=== PATIENT | female | born 1960 | race Two or more races ===

== ENCOUNTER 2023-03-02 11:40 | Emergency (ER) | payer OTHER ==
[~2023-03-02] VITALS: Ht 162.6 cm; Wt 84.2 kg
[2023-03-02] MEDS ORDERED: PROCHLORPERAZINE EDISYLATE 5 MG/ML 2ML VIAL IM ONE (12:15)
[2023-03-02 12:50] LABS: Basophils # (auto) 0.1 10 ^3/uL (0-0.2); Basophils % (auto) 0.5 % (0.0-2.0); Eosinophils # (auto) 0.1 10 ^3/uL (0-0.8); Eosinophils % (auto) 1.2 % (0.0-7.0); Hematocrit 45.2 % (36.0-46.0); Hemoglobin 15.3 g/dL (12.2-16.2); Lymphocytes # (auto) 2.2 10 ^3/uL (0.4-5.4); Lymphocytes % (auto) 19.9 % (10.0-50.0); Mean Corpuscular Hemoglobin 29.3 pg (28.0-32.0); Mean Corpuscular Hgb Conc. 33.8 g/dL (32.0-36.0); Mean Corpuscular Volume 86.7 fL (80.0-100.0); Monocytes # (auto) 0.8 10 ^3/uL (0-1.3); Monocytes % (auto) 7.1 % (0.0-12.0); Neutrophils # (auto) 7.7 10 ^3/uL (1.6-8.6); Neutrophils % (auto) 71.3 % (37.0-80.0); Red Blood Cells 5.22 10^6/uL (4.0-5.20); Red Cell Distribution Width 13.4 % (11.8-14.3); White Blood Cell 10.8 10^3/uL (4.4-10.8)
[2023-03-02 13:47] LABS: INR 0.98 (0.9-1.15); Partial Thromboplastin Time 25.3 SEC (24.5-34.5)
[2023-03-02 14:08] LABS: Albumin 3.7 g/dL (3.4-5.0); Calcium 9.3 mg/dL (8.5-10.1); Magnesium 2.4 mg/dL (1.6-2.6); Potassium 3.9 mmol/L (3.5-5.1)
[2023-03-02 14:11] LABS: BUN/Creatinine Ratio 16.4 (10.0-20.0); Bilirubin, Total 0.9 mg/dL (0.2-1.0); Total Protein 7.6 g/dL (6.4-8.2)
[2023-03-02] MEDS ORDERED: SODIUM CHLORIDE 0.9% 1,000 ML IV ONE (14:30)
[2023-03-02] MEDS ORDERED: IOHEXOL 350 MG/ML 100ML IJ ONE (14:33)
[2023-03-02 15:53] VITALS: PULSE 102; RESP 20; O2SAT 96
[2023-03-02] MEDS ORDERED: LISINOPRIL 10 MG TAB PO ONE (16:00)
[2023-03-02] MEDS ORDERED: MECL1TAB42 PO (16:33)
[2023-03-02] MEDS ORDERED: LISI10TA34 PO (16:42)
[2023-03-02] MEDS ORDERED: LORazepam 2MG/ML-1ML VIAL IV ONE (17:15)
[2023-03-02] MEDS ORDERED: PROCHLORPERAZINE EDISYLATE 5 MG/ML 2ML VIAL IV ONE (17:15)
[2023-03-02 17:53] VITALS: BP 142/72; PULSE 102; RESP 20; TEMP 97.9; O2SAT 97
== END 2023-03-02 18:24 | disposition home or self-care (01) ==
LOC: ER 11:40
DX: R55 Syncope and collapse (principal); I10 Essential (primary) hypertension; E11.9 Type 2 diabetes mellitus without complications; F17.210 Nicotine dependence, cigarettes, uncomplicated; Z88.5 Allergy status to narcotic agent
CPT/HCPCS: 36415; 70450; 70496; 71045; 80053; 83735; 83880; 84484; 85025; 85610; 85730; 93005; 96360; 96372; 99285; J0780; J2060; J7030; Q9967

== ENCOUNTER 2024-12-26 14:00 | Emergency (ER) | payer MEDICAID, OTHER ==
[~2024-12-26 14:00] MED LIST: LISI10TA34 PO; MECL1TAB42 PO
== END 2024-12-26 15:32 | disposition left against medical advice (07) ==
LOC: ER 14:09
DX: I10 Essential (primary) hypertension (principal); Z53.21 Procedure and treatment not carried out due to patient leaving prior to being seen by health care provider

== ENCOUNTER 2024-12-28 05:59 | Emergency (ER) | payer MEDICAID ==
[~2024-12-28] VITALS: Ht 162.6 cm; Wt 86.1 kg
[2024-12-28] MEDS: cloNIDine HCL 0.1 MG TAB PO ONE (06:35)
[2024-12-28] MEDS: cloNIDine HCL 0.1 MG TAB ONE (06:35)
--- NOTE | 2024-12-28 06:52 | ED.PDOC ---
HPI Comments 64 y/o F, with PMHx of HTN presents to the ED for CC of high blood pressure. Patient states, she has been experiencing a hypertensive crisis with symptoms of fatigue, nausea, and vomiting onset, [id number]. Patient reports, that she currently does not take any medication to control her blood pressure. Upon arrival to the ED, patient's blood pressure read at 190/106mmHg. Patient denies active chest pain, palpitations, shortness of breath, or headache. No other symptoms or modifying factors present at this time. Chief Complaint: High Blood Pressure Time Seen by MD: 06:15 Reviewed Notes: Nurses Notes, Medications, Allergies Allergies: Coded Allergies: Codeine (Verified Allergy, Unknown, 03/02/23) Home Meds Active Scripts Lisinopril (Lisinopril) 10 Mg Tab, 10 MG PO DAILY, #30 TAB Prov:ROBERT SCHULTE MD 03/02/23 Meclizine HCl (Meclizine 25) 25 Mg Tab, 25 MG PO Q6HP PRN, #20 TAB Prov:ROBERT SCHULTE MD 03/02/23 Information Source: Patient Mode of Arrival: Ambulatory Severity: Moderate Timing: Weeks Duration: Since onset Prehospital treatment: None Onset: At Rest Cardiac Risk Factors: Smoker, HTN, None PE Risk Factors: None History of: None Modifying Factors: Nothing Associated Signs and Symptoms: N/V Past Medical History PAST MEDICAL HISTORY: HTN Surgical History: Cholecystectomy, Tubal Ligation 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 SERVICER Hx Family History Family History: Unknown Social History Smoker: Cigarettes Alcohol: Denies ETOH Use Drugs: Denies Drug Use Lives In: Home Constitutional: reports: fatigue; denies: chills, diaphoresis, fever, malaise, sweats, weakness, others EENTM: denies: blurred vision, double vision, ear bleeding, ear discharge, ear drainage, ear pain, ear ringing, eye pain, eye redness, hearing loss, mouth pain, mouth swelling, nasal discharge, nose bleeding, nose congestion, nose pain, photophobia, tearing, throat pain, throat swelling, voice changes, others Respiratory: denies: cough, hemoptysis, orthopnea, SOB at rest, shortness of breath, SOB with excertion, stridor, wheezing, others Cardiovascular: denies: chest pain, dizzy spells, diaphoresis, Dyspnea on exertion, edema, irregular heart beat, left arm pain, lightheadedness, palpitations, PND, syncope, others Gastrointestinal: reports: nausea, vomiting; denies: abdomen distended, abdominal pain, blood streaked bowels, constipated, diarrhea, dysphagia, difficulty swallowing, hematemesis, melena, poor appetite, poor fluid intake, rectal bleeding, rectal pain, others Genitourinary: denies: abnormal vagina bleeding, burning, dyspareunia, dysuria, flank pain, frequency, hematuria, incontinence, pain, , vagina discharge, urgency, others Neurological: denies: dizziness, fainting, headache, left sided numbness, left sided weakness, numbness, paresthesia, pre-existing deficit, right sided numbness, right sided weakness, seizure, speech problems, tingling, tremors, weakness, others Musculoskeletal: denies: back pain, gout, joint pain, joint swelling, muscle pain, muscle stiffness, neck pain, others Integumetry: denies: bruises, change in color, change in hair/nails, dryness, laceration, lesions, lumps, rash, wounds, others Allergic/Immunocompromised: denies: Difficulty Healing, Frequent Infections, Hives, Itching, others Hematologic/Lymphatic: denies: anemia, blood clots, easy bleeding, easy bruising, swollen glands, others Endocrine: denies: excessive hunger, excessive sweating, excessive thirst, excessive urination, flushing, intolerance to cold, intolerance to heat, unexplained weight gain, unexplained weight loss, others Psychiatric: denies: anxiety, bipolar disorder, depression, hopeless, panic disorder, schizophrenia, sleepless, suicidal, others All Other Systems: Reviewed and Negative Physical Exam General Appearance: Moderate Distress HEENT: Normal ENT Inspection, Pharynx Normal, TMs Normal Neck: Full Range of Motion, Non-Tender, Normal, Normal Inspection Respiratory: Chest Non-Tender, Lungs Clear, No Accessory Muscle Use, No Respiratory Distress, Normal Breath Sounds Cardiovascular: No Edema, No JVD, No Murmur, No Gallop, Normal Peripheral Pulses, Regular Rate/Rhythm Breast Exam: Deferred Gastrointestinal: No Organomegaly, Non Tender, No Pulsatile Mass, Normal Bowel Sounds, Soft Genitalia: Deferred Pelvic: Deferred Rectal: Deferred Extremities: No calf tenderness, Normal capillary refill, Normal inspection, Normal range of motion, Non-tender, No pedal edema Musculoskeletal : Apperance: Normal Neurologic: Alert, race relations adviser II-XII nml as Tested, No Motor Deficits, Normal Affect, Normal Mood, No Sensory Deficits Cerebellar Function: Normal Reflexes: Normal Skin: Dry, Normal Color, Warm Peripheral Pulses: 3+ Radial (R), 3+ Radial (L) Lymphatic: No Adenopathy Was a procedure done? Was a procedure done?: No CP Differential Dx Differential Diagnosis: A-fib, A-Flutter, Angina, Anxiety / Panic Attack, Atrial Dysrhythmia, Electrolyte Disorder Differential Diagnosis: HTN Essential, HTN Accelerated X-Ray, Labs, Meds, VS Vital Signs Date Time Temp Pulse Resp B/P (MAP) Pulse Ox O2 Delivery O2 Flow Rate FiO2 12/28/24 06:35 190/106 12/28/24 06:19 97.2 84 18 190/106 (134) 96 97.2 Lab Test 12/28/24 06:40 12/28/24 06:25 Range/Units White Blood Count 10.1 4.4-10.8 10^3/uL Red Blood Count 5.68 H 4.0-5.20 10^6/uL Hemoglobin 16.6 H 12.2-16.2 g/dL Hematocrit 48.5 H 36.0-46.0 % Mean Corpuscular Volume 85.2 80.0-100.0 fL Mean Corpuscular Hemoglobin 29.2 28.0-32.0 pg Mean Corpuscular Hemoglobin Concent 34.3 32.0-36.0 g/dL Red Cell Distribution Width 13.6 11.8-14.3 % Platelet Count 312 140-450 10^3/uL Mean Platelet Volume 8.4 6.9-10.8 fL Neutrophils (%) (Auto) 55.7 37.0-80.0 % Lymphocytes (%) (Auto) 32.3 10.0-50.0 % Monocytes (%) (Auto) 6.8 0.0-12.0 % Eosinophils (%) (Auto) 4.5 0.0-7.0 % Basophils (%) (Auto) 0.7 0.0-2.0 % Neutrophils # (Auto) 5.6 1.6-8.6 10 ^3/uL Lymphocytes # (Auto) 3.2 0.4-5.4 10 ^3/uL Monocytes # (Auto) 0.7 0-1.3 10 ^3/uL Eosinophils # (Auto) 0.4 0-0.8 10 ^3/uL Basophils # (Auto) 0.1 0-0.2 10 ^3/uL Nucleated Red Blood Cells 0.1 % Sodium Level 140 136-145 mmol/L Potassium Level 4.7 3.5-5.1 mmol/L Chloride Level 105 98-107 mmol/L Carbon Dioxide Level 25 20-31 mmol/L Anion Gap 10 5-15 Blood Urea Nitrogen 32 H 9-23 mg/dL Creatinine 1.92 H 0.550-1.02 mg/dL Glomerular Filtration Rate Calc 29 >90 mL/min BUN/Creatinine Ratio 16.7 10.0-20.0 Serum Glucose 172 H 74-106 mg/dL Calcium Level 9.7 8.7-10.4 mg/dL POC Glucose 163 H 70-106 mg/dl Current Medications Medications (Trade) Dose Ordered Sig/Fozia Route Start Time Stop Time Status Last Admin Clonidine HCl (Catapres Tablet) 0.2 mg ONCE ONCE PO 12/28/24 06:45 12/28/24 06:46 DC 12/28/24 06:35 Patient alert. Generalized symptoms. Blood sugar slightly elevated. Vitals stable. Blood pressure elevated. Was given clonidine. She does not take care of herself. Has not seen a provider in many months. Ambulating without difficulty. Saturation pristine on room air. Was given prescription of lisinopril. Explained to the patient. Was told to follow up with her primary care physician. Was told to come back if there any problem. Time of 1ST Reevaluation: 06:45 Reevaluation 1ST: Unchanged Patient Education/Counseling: Diagnosis, Treatment Family Education/Counseling: No Family Present Departure 1 Departure Time of Disposition: 07:00 Impression: Primary Impression: Hypertensive emergency Additional Impression: Hyperglycemia Disposition: 01 HOME / SELF CARE / HOMELESS Condition: Good e-Prescriptions Lisinopril (Lisinopril) 2.5 Mg Tab 1 TAB PO DAILY for 10 Days, #10 TAB 5 Refills Prov: GUEVARA AGARWAL MD 12/28/24 Discharged With: Self Critical Care Note Critical Care Time?: No Stability Stability form required: No Heart Score Heart Score: Heart Score Response (Comments) Value History N/A 0 EKG N/A 0 Age N/A 0 Risk Factors N/A 0 Troponin N/A 0 Total 0 I personally scribed for GUEVARA AGARWAL MD ([email or web address]) on 12/28/24 at 06:52. Electronically submitted by Rita Saldivar ([email or web address]). GUEVARA AGARWAL MD December 28, 2024 06:52
[2024-12-28 06:59] LABS: Chloride 105 mmol/L (98-107); Potassium 4.7 mmol/L (3.5-5.1); Sodium 140 mmol/L (136-145)
[2024-12-28 07:00] LABS: Anion Gap 10 (5-15); Calcium 9.7 mg/dL (8.7-10.4); Carbon Dioxide 25 mmol/L (20-31)
[2024-12-28 07:04] LABS: Basophils # (auto) 0.1 10 ^3/uL (0-0.2); Basophils % (auto) 0.7 % (0.0-2.0); Eosinophils # (auto) 0.4 10 ^3/uL (0-0.8); Eosinophils % (auto) 4.5 % (0.0-7.0); Hematocrit 48.5 % (36.0-46.0); Hemoglobin 16.6 g/dL (12.2-16.2); Lymphocytes # (auto) 3.2 10 ^3/uL (0.4-5.4); Lymphocytes % (auto) 32.3 % (10.0-50.0); Mean Corpuscular Hemoglobin 29.2 pg (28.0-32.0); Mean Corpuscular Hgb Conc. 34.3 g/dL (32.0-36.0); Mean Corpuscular Volume 85.2 fL (80.0-100.0); Monocytes # (auto) 0.7 10 ^3/uL (0-1.3); Monocytes % (auto) 6.8 % (0.0-12.0); Neutrophils # (auto) 5.6 10 ^3/uL (1.6-8.6); Neutrophils % (auto) 55.7 % (37.0-80.0); Nucleated Red Blood Cells % 0.1 %; Platelet Count (auto) 312 10^3/uL (140-450); Red Blood Cells 5.68 10^6/uL (4.0-5.20); Red Cell Distribution Width 13.6 % (11.8-14.3); White Blood Cell 10.1 10^3/uL (4.4-10.8)
[2024-12-28 07:05] LABS: BUN/Creatinine Ratio 16.7 (10.0-20.0); Blood Urea Nitrogen 32 mg/dL (9-23); Glucose 172 mg/dL (74-106)
[2024-12-28 08:55] VITALS: BP 154/88; PULSE 104; RESP 16; TEMP 98.3; O2SAT 97
[2024-12-28] MEDS ORDERED: LISI2.5T47 PO (09:00)
== END 2024-12-28 09:02 | disposition home or self-care (01) ==
LOC: ER 05:59
DX: I16.1 Hypertensive emergency (principal); R73.9 Hyperglycemia, unspecified; F17.210 Nicotine dependence, cigarettes, uncomplicated; I10 Essential (primary) hypertension; Z98.51 Tubal ligation status; Z90.49 Acquired absence of other specified parts of digestive tract; Z88.5 Allergy status to narcotic agent; Z79.899 Other long term (current) drug therapy
CPT/HCPCS: 36415; 80048; 82947; 82962; 85025

== ENCOUNTER 2025-02-16 06:52 | Emergency (ER) | payer MEDICAID ==
[~2025-02-16] VITALS: Ht 162.6 cm; Wt 84.8 kg
[~2025-02-16 06:52] MED LIST changes: +LISI2.5T47 PO
--- NOTE | 2025-02-16 07:32 | ECG ---
[facility] Test Date: 2025-02-16 Test Time: 07:30:57 Pat Name: JERO MARTINEZ Department: ER Room: Gender: F Observation Nurse: YOLANDA : 1960 Requested By: CONY MEADOWS Order Number: [id number] Reading MD: Measurements Intervals Clark Rate: 107 P: 50 UT: 107 QRS: -43 QRSD: 86 T: 80 QT: 378 QTc: 505 Interpretive Statements Sinus tachycardia Consider right atrial enlargement Left anterior fascicular block Abnormal R-wave progression, early transition Left ventricular hypertrophy Anterior Q waves, possibly due to LVH Prolonged QT interval Please click the below link to view image of tracing.
--- NOTE | 2025-02-16 07:39 | ED.PDOC ---
History of Present Illness HPI Comments 64-year-old female with PMHx HTN, DM presents with a chief complaint of lightheadedness, dizziness, and nausea. Patient states that her dizziness feels both like shes going to pass out and if the room is spinning. Patient states that she has HTN, but does not take any medications for it. Patient denies zully martinez a primary medical doctor. Patients blood pressure in triage was 148/122 and 162/102. Chief Complaint: Dizziness Time Seen by MD: 07:24 Reviewed Notes: Medications, Allergies Allergies: Coded Allergies: Codeine (Verified Allergy, Unknown, 03/02/23) Home Meds Active Scripts Lisinopril (Lisinopril) 2.5 Mg Tab, 1 TAB PO DAILY for 10 Days, #10 TAB 5 Refills Prov:GUEVARA AGARWAL MD 12/28/24 Lisinopril (Lisinopril) 10 Mg Tab, 10 MG PO DAILY, #30 TAB Prov:ROBERT SCHULTE MD 03/02/23 Meclizine HCl (Meclizine 25) 25 Mg Tab, 25 MG PO Q6HP PRN, #20 TAB Prov:ROBERT SCHULTE MD 03/02/23 Information Source: Patient Mode of Arrival: Ambulatory Severity: Moderate Timing: Days Duration: Since onset Prehospital treatment: None Past Medical History PAST MEDICAL HISTORY: DM, HTN Surgical History: Cholecystectomy, Tubal Ligation 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 Hx Family History Family History: Unknown Social History Smoker: Cigarettes Alcohol: Denies ETOH Use Drugs: Denies Drug Use Lives In: Home Constitutional: denies: chills, diaphoresis, fatigue, fever, malaise, sweats, weakness, others EENTM: denies: blurred vision, double vision, ear bleeding, ear discharge, ear drainage, ear pain, ear ringing, eye pain, eye redness, hearing loss, mouth pain, mouth swelling, nasal discharge, nose bleeding, nose congestion, nose pain, photophobia, tearing, throat pain, throat swelling, voice changes, others Respiratory: denies: cough, hemoptysis, orthopnea, SOB at rest, shortness of breath, SOB with excertion, stridor, wheezing, others Cardiovascular: reports: lightheadedness; denies: chest pain, dizzy spells, diaphoresis, Dyspnea on exertion, edema, irregular heart beat, left arm pain, palpitations, PND, syncope, others Gastrointestinal: reports: nausea; denies: abdomen distended, abdominal pain, blood streaked bowels, constipated, diarrhea, dysphagia, difficulty swallowing, hematemesis, melena, poor appetite, poor fluid intake, rectal bleeding, rectal pain, vomiting, others Genitourinary: denies: abnormal vagina bleeding, burning, dyspareunia, dysuria, flank pain, frequency, hematuria, incontinence, pain, , vagina discharge, urgency, others Neurological: reports: dizziness; denies: fainting, headache, left sided numbness, left sided weakness, numbness, paresthesia, pre-existing deficit, right sided numbness, right sided weakness, seizure, speech problems, tingling, tremors, weakness, others Musculoskeletal: denies: back pain, gout, joint pain, joint swelling, muscle pain, muscle stiffness, neck pain, others Integumetry: denies: bruises, change in color, change in hair/nails, dryness, laceration, lesions, lumps, rash, wounds, others Allergic/Immunocompromised: denies: Difficulty Healing, Frequent Infections, Hives, Itching, others Hematologic/Lymphatic: denies: anemia, blood clots, easy bleeding, easy bruising, swollen glands, others Endocrine: denies: excessive hunger, excessive sweating, excessive thirst, excessive urination, flushing, intolerance to cold, intolerance to heat, un explained weight gain, unexplained weight loss, others Psychiatric: denies: anxiety, bipolar disorder, depression, hopeless, panic disorder, schizophrenia, sleepless, suicidal, others All Other Systems: Reviewed and Negative Physical Exam General Appearance: No Apparent Distress, Normal HEENT: Normal ENT Inspection, Pharynx Normal, TMs Normal Neck: Full Range of Motion, Non-Tender, Normal, Normal Inspection Respiratory: Chest Non-Tender, Lungs Clear, No Accessory Muscle Use, No Respiratory Distress, Normal Breath Sounds Cardiovascular: No Edema, No JVD, No Murmur, No Gallop, Normal Peripheral Pu lses, Regular Rate/Rhythm Breast Exam: Deferred Gastrointestinal: No Organomegaly, Non Tender, No Pulsatile Mass, Normal Bowel Sounds, Soft Genitalia: Deferred Pelvic: Deferred Rectal: Deferred Extremities: No calf tenderness, Normal capillary refill, Normal inspection, Normal range of motion, Non-tender, No pedal edema Musculoskeletal : Apperance: Normal Neurologic: Alert, rrt II-XII nml as Tested, No Motor Deficits, Normal Affect, Normal Mood, No Sensory Deficits Cerebellar Function: Normal Reflexes: Normal Skin: Dry, Normal Color, Warm Lymphatic: No Adenopathy Was a procedure done? Was a procedure done?: No Differential Dx Considerations may include: ACS, CVA, viral syndrome, electrolyte abnormality, hypertensive emergency X-Ray, Labs, Meds, VS Vital Signs Date Time Temp Pulse Resp B/P (MAP) Pulse Ox O2 Delivery O2 Flow Rate FiO2 02/16/25 08:25 98.0 80 16 92/55 (67) 98 98.0 02/16/25 08:00 148/122 02/16/25 07:52 84 20 98 Room Air* 0 21 02/16/25 07:30 107 02/16/25 07:20 98.2 102 20 148/122 (131) 95 98.2 162/102 (122) Lab Test 02/16/25 07:48 Range/Units White Blood Count 9.3 4.4-10.8 10^3/uL Red Blood Count 5.64 H 4.0-5.20 10^6/uL Hemoglobin 16.5 H 12.2-16.2 g/dL Hematocrit 48.8 H 36.0-46.0 % Mean Corpuscular Volume 86.6 80.0-100.0 fL Mean Corpuscular Hemoglobin 29.2 28.0-32.0 pg Mean Corpuscular Hemoglobin Concent 33.7 32.0-36.0 g/dL Red Cell Distribution Width 13.5 11.8-14.3 % Platelet Count 316 140-450 10^3/uL Mean Platelet Volume 8.6 6.9-10.8 fL Neutrophils (%) (Auto) 63.0 37.0-80.0 % Lymphocytes (%) (Auto) 24.4 10.0-50.0 % Monocytes (%) (Auto) 7.0 0.0-12.0 % Eosinophils (%) (Auto) 4.7 0.0-7.0 % Basophils (%) (Auto) 0.9 0.0-2.0 % Neutrophils # (Auto) 5.8 1.6-8.6 10 ^3/uL Lymphocytes # (Auto) 2.3 0.4-5.4 10 ^3/uL Monocytes # (Auto) 0.6 0-1.3 10 ^3/uL Eosinophils # (Auto) 0.4 0-0.8 10 ^3/uL Basophils # (Auto) 0.1 0-0.2 10 ^3/uL Nucleated Red Blood Cells 0.2 % Sodium Level 140 136-145 mmol/L Potassium Level 4.3 3.5-5.1 mmol/L Chloride Level 108 H 98-107 mmol/L Carbon Dioxide Level 23 20-31 mmol/L Anion Gap 9 5-15 Blood Urea Nitrogen 28 H 9-23 mg/dL Creatinine 1.64 H 0.550-1.02 mg/dL Glomerular Filtration Rate Calc 35 >90 mL/min BUN/Creatinine Ratio 17.1 10.0-20.0 Serum Glucose 209 H 74-106 mg/dL Lactic Acid Level 1.7 0.4-2.0 mmol/L Calcium Level 10.4 8.7-10.4 mg/dL Troponin I High Sensitivity 30 </=34 ng/L Current Medications Medications (Trade) Dose Ordered Sig/Fozia Route Start Time Stop Time Status Last Admin Hydralazine HCl (Apresoline Injection) 20 mg ONCE ONCE IV 02/16/25 08:00 02/16/25 08:01 DC 02/16/25 08:00 Time of 1ST Reevaluation: 07:54 Reevaluation 1ST: Unchanged Patient Education/Counseling: Diagnosis, Treatment Family Education/Counseling: No Family Present SEPSIS Sepsis Screen Physician Orders Urinalysis (02/16/25 07:10) Blood Culture (02/16/25 07:10) Troponin-I Hs (02/16/25 08:10) Troponin-I Hs (02/16/25 10:10) Electrocardigram (02/16/25 08:10) Electrocardigram (02/16/25 10:10) Head Without Contrast (02/16/25 07:26) Chest Portable (02/16/25 07:26) Vital Signs Date Time Temp Pulse Resp B/P (MAP) Pulse Ox O2 Delivery O2 Flow Rate FiO2 02/16/25 08:25 98.0 80 16 92/55 (67) 98 98.0 02/16/25 08:00 148/122 02/16/25 07:52 84 20 98 Room Air* 0 21 02/16/25 07:30 107 02/16/25 07:20 98.2 102 20 148/122 (131) 95 98.2 162/102 (122) Laboratory Tests Test 02/16/25 07:48 Lactic Acid Level 1.7 mmol/L (0.4-2.0) White Blood Count 9.3 10^3/uL (4.4-10.8) Medications Medications Dose Ordered Sig/Fozia Route Start Time Stop Time Status Last Admin Dose Admin Hydralazine HCl 20 mg ONCE ONCE IV 02/16/25 08:00 02/16/25 08:01 DC 02/16/25 08:00 Departure 1 Departure Time of Disposition: 08:47 (Patient presented with hypertension and symptoms concerning for hypertensive emergency. Patient is receiving iv blood pressure medications requiring intensive monitoring. Data: 1. I ordered and reviewed the result of at least 3 labs including a CBC, BMP, and Urinalysis. 2. I independently interpreted the following tests: CT Brain: Which appears benign. EKG which is Normal Sinus RhythmRisk:This patient has a high risk of morbidity due to further diagnostic testing or treatment and may suffer from an acute cardiac disorder. Workup reveals hypertensive emergency and patient should be admitted for further workup. and possible expert consultation. ) Impression: Primary Impression: Hypertensive emergency Additional Impressions: Syncope and collapse Dizziness Disposition: 09 ADMITTED INPATIENT Admit to: Med Surg Condition: Guarded Critical Care Note Critical Care Time?: Yes Critical care comment: Hypertensive emergency Authorized and Performed by: Cony Malik MD Total critical care time: Approximately 39 minutes Due to a high probability of clinically significant, life threatening deterioration, the patient required my highest level of preparedness to intervene emergently and I personally spent this critical care time directly and personally managing the patient. This critical care time included obtaining a history; examining the patient; pulse oximetry; ordering and review of studies; arranging urgent treatment with development of a management plan; evaluation of patient's response to treatment; frequent reassessment; and, discussions with other providers. This critical care time was performed to assess and manage the high probability of imminent, life-threatening deterioration that could result in multi-organ failure. It was exclusive of separately billable procedures and treating other patients and teaching time. Please see my other sections and the rest of the note for further information on patient assessment and treatment. Stability Stability form required: No Heart Score Heart Score: Heart Score Response (Comments) Value History N/A 0 EKG N/A 0 Age N/A 0 Risk Factors N/A 0 Troponin N/A 0 Total 0 I personally scribed for CONY MALIK MD ([email or web address]) on 02/16/25 at 07:38. Electronically submitted by Alistair Frances ([email or web address]). CONY MALIK MD Feb 16, 2025 07:38
[2025-02-16 07:52] VITALS: PULSE 84; RESP 20; O2SAT 98
--- NOTE | 2025-02-16 07:58 | DVH ---
CLINICAL INFORMATION: Dizziness. TECHNIQUE: Single AP portable chest radiograph was obtained. COMPARISON: XY CHEST XRAY 1 VIEW on DOS: 03/02/23 FINDINGS: Lungs: Clear. Cardiac: Heart size is within normal limits. Pulmonary vasculature: Unremarkable. Mediastinum/rashard: Unremarkable. Bones: No acute osseous abnormality identified. Other: No other significant findings. IMPRESSION: No evidence of acute disease in the chest.
[2025-02-16] MEDS: hydrALAZINE HCL 20 MG/ML VL IV ONE (08:00)
[2025-02-16] MEDS: hydrALAZINE HCL 20 MG/ML VL ONE (08:03)
--- NOTE | 2025-02-16 08:06 | DVH ---
EXAM: CT HEAD WITHOUT CONTRAST INDICATION: Dizziness TECHNIQUE: CT of the head without intravenous contrast. Coronal and sagittal reformatted images are s ubmitted. Radiation Dose : 1. Head: CT Dose: CTDI volume is 56.5 mGy. Dose-length product is 904.5 mGy*cm The dose indicators for CT are the volume Computed Tomography (CT) Dose Index (CTDIvol) and the Dose Length Product (DLP), and are measured in units of mGy and mGy-cm, respectively. These indicators are not patient dose, but values generated from the CT scanner acquisition factors. The report includes radiation exposure data for exposures received during this examination. All CT scans at this medical facility are performed using dose modulation techniques as appropriate to a performed exam including the following: Automated exposure control was utilized; adjustment of the MA and/or KV according to patient size; and use of iterative reconstruction technique. COMPARISON: CT STROKE CTH on DOS: 03/02/23 FINDINGS: There is no evidence of acute intracranial hemorrhage, extra-axial collection, mass effect, midline s hift, herniation or hydrocephalus. The ventricles, sulci and cisterns are age appropriate. The rodriguez-white differentiation is intact. The visualized paranasal sinuses and mastoid air cells are clear. No depressed calvarial fracture. The surrounding soft tissues are unremarkable. IMPRESSION: 1. No evidence of acute intracranial abnormality.
[2025-02-16 08:15] LABS: Potassium 4.3 mmol/L (3.5-5.1); Sodium 140 mmol/L (136-145)
[2025-02-16 08:16] LABS: Anion Gap 9 (5-15); Calcium 10.4 mg/dL (8.7-10.4); Carbon Dioxide 23 mmol/L (20-31)
[2025-02-16 08:21] LABS: BUN/Creatinine Ratio 17.1 (10.0-20.0); Blood Urea Nitrogen 28 mg/dL (9-23); Chloride 108 mmol/L (98-107); Glucose 209 mg/dL (74-106)
[2025-02-16 08:22] LABS: Hematocrit 48.8 % (36.0-46.0); Hemoglobin 16.5 g/dL (12.2-16.2); Mean Corpuscular Hemoglobin 29.2 pg (28.0-32.0); Mean Corpuscular Volume 86.6 fL (80.0-100.0); Nucleated Red Blood Cells % 0.2 %
[2025-02-16 08:25] VITALS: TEMP 98
[2025-02-16 08:50] VITALS: BP 111/58; PULSE 89; RESP 20; O2SAT 97
--- NOTE | 2025-02-16 09:08 | DVHINCON2 ---
Date Seen: Feb 16, 2025 History of Present Illness Patient left AMA Allergies: Coded Allergies: Codeine (Verified Allergy, Unknown, 03/02/23) Home Meds Active Scripts Lisinopril (Lisinopril) 2.5 Mg Tab, 1 TAB PO DAILY for 10 Days, #10 TAB 5 Refills Prov:GUEVARA AGARWAL MD 12/28/24 Lisinopril (Lisinopril) 10 Mg Tab, 10 MG PO DAILY, #30 TAB Prov:ROBERT SCHULTE MD 03/02/23 Meclizine HCl (Meclizine 25) 25 Mg Tab, 25 MG PO Q6HP PRN, #20 TAB Prov:ROBERT SCHULTE MD 03/02/23 Vital Signs Vital Signs Date Time Temp Pulse Resp B/P (MAP) Pulse Ox O2 Delivery O2 Flow Rate FiO2 02/16/25 08:50 89 20 111/58 (75) 97 02/16/25 08:25 98.0 98.0 02/16/25 07:52 Room Air* 0 21 Labs/Diagnostic Data Labs Test 02/16/25 07:48 Range/Units White Blood Count 9.3 4.4-10.8 10^3/uL Red Blood Count 5.64 H 4.0-5.20 10^6/uL Hemoglobin 16.5 H 12.2-16.2 g/dL Hematocrit 48.8 H 36.0-46.0 % Mean Corpuscular Volume 86.6 80.0-100.0 fL Mean Corpuscular Hemoglobin 29.2 28.0-32.0 pg Mean Corpuscular Hemoglobin Concent 33.7 32.0-36.0 g/dL Red Cell Distribution Width 13.5 11.8-14.3 % Platelet Count 316 140-450 10^3/uL Mean Platelet Volume 8.6 6.9-10.8 fL Neutrophils (%) (Auto) 63.0 37.0-80.0 % Lymphocytes (%) (Auto) 24.4 10.0-50.0 % Monocytes (%) (Auto) 7.0 0.0-12.0 % Eosinophils (%) (Auto) 4.7 0.0-7.0 % Basophils (%) (Auto) 0.9 0.0-2.0 % Neutrophils # (Auto) 5.8 1.6-8.6 10 ^3/uL Lymphocytes # (Auto) 2.3 0.4-5.4 10 ^3/uL Monocytes # (Auto) 0.6 0-1.3 10 ^3/uL Eosinophils # (Auto) 0.4 0-0.8 10 ^3/uL Basophils # (Auto) 0.1 0-0.2 10 ^3/uL Nucleated Red Blood Cells 0.2 % Sodium Level 140 136-145 mmol/L Potassium Level 4.3 3.5-5.1 mmol/L Chloride Level 108 H 98-107 mmol/L Carbon Dioxide Level 23 20-31 mmol/L Anion Gap 9 5-15 Blood Urea Nitrogen 28 H 9-23 mg/dL Creatinine 1.64 H 0.550-1.02 mg/dL Glomerular Filtration Rate Calc 35 >90 mL/min BUN/Creatinine Ratio 17.1 10.0-20.0 Serum Glucose 209 H 74-106 mg/dL Lactic Acid Level 1.7 0.4-2.0 mmol/L Calcium Level 10.4 8.7-10.4 mg/dL Troponin I High Sensitivity 30 </=34 ng/L Plan discussed with: Other Date of Service: Feb 16, 2025 Billing Provider: [facility] Common Visit Codes: 52031-PGTFOHA INP/OBS CARE (HIGH) [employer] C[employer] MANAG[employer] SPECIALIST Feb 16, 2025 09:08
== END 2025-02-16 09:06 | disposition left against medical advice (07) ==
LOC: ER 06:52
DX: I16.1 Hypertensive emergency (principal); R42 Dizziness and giddiness; E11.9 Type 2 diabetes mellitus without complications; F17.210 Nicotine dependence, cigarettes, uncomplicated; Z79.899 Other long term (current) drug therapy; Z90.49 Acquired absence of other specified parts of digestive tract; Z98.51 Tubal ligation status; Z88.5 Allergy status to narcotic agent
CPT/HCPCS: 36415; 70450; 71045; 80048; 83605; 84484; 85025; 87040; 93005; 96374; 99285; J0360